=== PATIENT | female | born 1970 | race Hispanic/Latino ===

== ENCOUNTER 2016-12-16 09:54 | Outpatient (CLI) | payer OTHER ==
[2016-12-16 11:17] LABS: ALT (SGPT) 32 U/L (0-55); AST (SGOT) 20 U/L (5-34); Alkaline Phosphatase 54 U/L (40-150); Bilirubin, Direct 0.2 mg/dL (0.1-0.3); Bilirubin, Total 0.5 mg/dL (0.2-1.2); Protein, Total 8.2 g/dL (6.0-8.3)
== END 2016-12-16 09:55 | disposition home or self-care (01) ==
LOC: HPCALD 09:54
PROVIDERS: ATTEND Physician Assistant
DX: R74.8 Abnormal levels of other serum enzymes (principal)
CPT/HCPCS: 36415; 80076

== ENCOUNTER 2017-01-06 09:19 | Outpatient (CLI) | payer OTHER ==
[2017-01-06 11:25] LABS: ALT (SGPT) 44 U/L (0-55); AST (SGOT) 28 U/L (5-34); Alkaline Phosphatase 52 U/L (40-150); Anion Gap 13 mmol/L (10-20); BUN (Urea Nitrogen) 16 mg/dL (7.0-18.7); Bilirubin, Total 0.5 mg/dL (0.2-1.2); Calc. Creatinine Clearance 0 mL/min (70-130); Carbon Dioxide 20 mmol/L (22-29); Chloride 107 mmol/L (98-107); Estimated GFR-MDRD 88; Globulin 4.5 g/dL (2.4-3.5); Protein, Total 8.4 g/dL (6.0-8.3)
== END 2017-01-06 09:20 | disposition home or self-care (01) ==
LOC: HPCALD 09:19
PROVIDERS: ATTEND Physician Assistant
DX: M25.50 Pain in unspecified joint (principal)
CPT/HCPCS: 36415; 80053; 86038; 86200; 86430

== ENCOUNTER 2018-11-05 09:00 | Emergency (ER) | payer BC | END 2018-11-05 09:13 | disposition home or self-care (01) | LOC: BURERS 09:00 | DX: K04.7 Periapical abscess without sinus (principal); E11.9 Type 2 diabetes mellitus without complications; I10 Essential (primary) hypertension; Z79.899 Other long term (current) drug therapy | CPT/HCPCS: 99283 ==

== ENCOUNTER 2019-09-06 07:34 | Emergency (ER) | payer BC | END 2019-09-06 08:02 | disposition home or self-care (01) | LOC: BURERS 07:34 | DX: T21.11XA Burn of first degree of chest wall, initial encounter (principal); T20.111A Burn of first degree of right ear [any part, except ear drum], initial encounter; T31.0 Burns involving less than 10% of body surface; I10 Essential (primary) hypertension; Z79.899 Other long term (current) drug therapy; Z79.82 Long term (current) use of aspirin; X12.XXXA Contact with other hot fluids, initial encounter | CPT/HCPCS: 99283 ==

== ENCOUNTER 2022-07-17 12:07 | Outpatient (CLI) | payer BC ==
[2022-07-17 12:40] LABS: ALT (SGPT) 74 U/L (8-55); AST (SGOT) 33 U/L (5-34); Albumin 4.2 g/dL (3.5-5.0); Alkaline Phosphatase 68 U/L (40-110); Anion Gap 12 mmol/L (10-20); BUN (Urea Nitrogen) 17 mg/dL (9.8-20.1); Bilirubin, Total 0.4 mg/dL (0.2-1.2); Calc. Creatinine Clearance 0 mL/min (70-130); Calcium 9.6 mg/dL (7.8-10.44); Carbon Dioxide 24 mmol/L (22-29); Chloride 105 mmol/L (98-107); Estimated GFR 94; Globulin 4.5 g/dL (2.4-3.5); Glucose 143 mg/dL (70-105); Potassium 4.4 mmol/L (3.5-5.1); Protein, Total 8.7 g/dL (6.0-8.3); Sodium 137 mmol/L (136-145)
[2022-07-17 13:14] LABS: #Basophils 0.1 thou/uL (0.0-0.2); #Eosinphils 0.2 thou/uL (0.0-0.7); #Lymphocytes 2.1 thou/uL (1.20-3.40); #Monocytes 0.7 thou/uL (0.11-0.59); #Neutrophils 4.1 thou/uL (1.40-6.50); %Eosinophils 2.1 % (0.0-10.0); %Lymphocytes 29.2 % (21.0-51.0); %Monocytes 9.9 % (0.0-10.0); %Neutrophils 57.8 % (42.0-75.0); Mean Corpuscular HGB CONC 34.6 g/dL (32.0-36.0); Mean Corpuscular Hemoglobin 34.1 pg (27.0-31.0); Mean Corpuscular Volume 98.7 fL (78.0-98.0); Mean Platelet Volume 5.2 fL (7.4-10.4); Platelet Count 388 thou/uL (130-400); RBC Distribution Width 11.4 % (11.5-14.5); Red Blood Cell (RBC) Count 3.82 mill/uL (4.20-5.40); White Blood Cell (WBC) Count 7.2 thou/uL (4.8-10.8)
[2022-07-17 13:16] LABS: MDiff Complete? YES
== END 2022-07-17 12:08 | disposition home or self-care (01) ==
LOC: HPCALD 12:07
PROVIDERS: ATTEND Physician Assistant
DX: R81 Glycosuria (principal); R39.9 Unspecified symptoms and signs involving the genitourinary system
CPT/HCPCS: 80053; 84443; 85025; 87086